=== PATIENT | female | born 1930 | race Caucasian/White ===

== ENCOUNTER 2017-10-09 14:57 | Outpatient (RCR) | payer MEDICARE ==
[~2017-10-09 14:57] MED LIST: ACETAMINOPHEN650 MG PO; ALEVE220 MG PO; ALPRAZOLAM0.5 MG PO; BENADRYL25 M1 PO; DAILY VITAMIN1 EAC3 PO; LISINOPRIL10 MG PO; NORCO 7.5-3251 EACH PO; TRIAMTERENE-HCTZ1 EA PO; Z BENEFIBER PO; Z.0.LISINOPRIL10 MG PO; Z.0.NORVASC10 MG PO; Z.0.TRIAMTERENE-HC1 PO; Z.0.XANAX0.5 MG PO
== END 2017-10-11 ==
LOC: PT 14:57
PROVIDERS: ATTEND Specialist
DX: S32.591A Other specified fracture of right pubis, initial encounter for closed fracture (principal); S32.401A Unspecified fracture of right acetabulum, initial encounter for closed fracture; R26.2 Difficulty in walking, not elsewhere classified; M62.81 Muscle weakness (generalized)
CPT/HCPCS: 97110 ×9; G8978; G8979

== ENCOUNTER 2017-11-16 13:15 | Emergency (ER) | payer MEDICARE ==
[~2017-11-16] VITALS: Ht 170.2 cm; Wt 81.6 kg
[2017-11-16] MEDS ORDERED: DEXAMETHASONE SOD PHOS 10 MG/1 ML VIAL INJ ONE ×2 (13:45→17:00)
[2017-11-16] MEDS ORDERED: HYDROCODONE/APAP 5MG-325MG TAB PO ONE ×2 (13:45→17:00)
[2017-11-16] MEDS ORDERED: CYCLOBENZAPRINE HCL 10 MG TAB PO ONE ×2 (13:45→17:00)
--- NOTE | 2017-11-16 15:16 | Diagnostic Imaging Report ---
PROCEDURE:X-RAY PELVIS, AP VIEW COMPARISON:MRI of the pelvis from 06/19/2017 INDICATIONS:back pain FINDINGS: One view of the pelvis (AP) The known right acetabular fracture (best seen on MRI from 06/19/2017) is poorly visualized. Healing fracture of the right inferior pubic ramus. There are no new fractures, dislocations, lytic or blastic lesions. The bones are well-mineralized. The soft-tissues are unremarkable.Large amount of stool in the rectum. CONCLUSION: Healed fracture of the right inferior pubic ramus. No acute abnormality. Dictated by: Hardik Bryant M.D. on 11/16/2017 at 15:26 Electronically approved by: Hardik Bryant M.D. on 11/16/2017 at 15:26
--- NOTE | 2017-11-16 15:20 | Diagnostic Imaging Report ---
PROCEDURE:X-RAY LUMBAR SPINE, TWO VIEWS COMPARISON:None. INDICATIONS:BACK PAIN FINDINGS: There are 5 lumbar-type vertebral bodies. Sacralization of L5 Mild multilevel degenerative changes of the lumbar spine with multilevel disc space narrowing. Severe disc space narrowing at L5-S1. Moderate facet arthrosis affects the lower lumbar spine. Grade 1 anterolisthesis (likely degenerative) of L4 on L5. No fractures, lytic or blastic lesions. There are moderate degenerative changes of the sacroiliac joints. CONCLUSION: Multilevel degenerative changes of the lumbar spine as described above. No acute post traumatic abnormality. Dictated by: Hardik Bryant M.D. on 11/16/2017 at 15:30 Electronically approved by: Hardik Bryant M.D. on 11/16/2017 at 15:30
[2017-11-16 17:11] LABS: BILIRUBIN,URINE NEGATIVE (NEGATIVE); KETONES,URINE NEGATIVE (NEGATIVE); LEUKOCYTE ESTERASE ,URINE NEGATIVE (NEGATIVE); NITRITE,URINE NEGATIVE (NEGATIVE); PROTEIN,URINE DIPSTICK NEGATIVE (NEGATIVE); URINE UROBILINOGEN 0.2 mg/dL (0.2 - 1)
[2017-11-16 17:14] LABS: CLARITY,URINE SL CLOUDY (CLEAR); COLOR,URINE YELLOW (YELLOW)
[2017-11-16 17:24] LABS: EPITHELIAL CELLS,URINE FEW /LPF; RBC,URINE 0-5 /HPF (0-5); WBC,URINE (MAN) 0-5 /HPF (0-5)
== END 2017-11-16 17:42 | disposition home or self-care (01) ==
LOC: ER 13:15
DX: M54.5 Low back pain (principal)
CPT/HCPCS: 72100; 72170; 81001; 87086; 99283; J1100

== ENCOUNTER 2017-11-23 12:10 | Inpatient (IN) | payer MEDICARE ==
[~2017-11-23] VITALS: Ht 170.2 cm; Wt 94.9 kg
[2017-11-23] MEDS ORDERED: VITAMIN D1000 UNI1 PO (12:43)
[2017-11-23 14:28] LABS: BILIRUBIN,URINE NEGATIVE (NEGATIVE); KETONES,URINE NEGATIVE (NEGATIVE); LEUKOCYTE ESTERASE ,URINE 2+ (NEGATIVE); PROTEIN,URINE DIPSTICK NEGATIVE (NEGATIVE); URINE UROBILINOGEN 0.2 mg/dL (0.2 - 1)
[2017-11-23 14:32] LABS: NITRITE,URINE POSITIVE (NEGATIVE)
[2017-11-23 14:33] LABS: CLARITY,URINE SL CLOUDY (CLEAR); COLOR,URINE YELLOW (YELLOW)
[2017-11-23 14:54] LABS: AMORPHOUS SEDIMENT,URINE MODERATE (FEW); BACTERIA,URINE FEW /HPF; EPITHELIAL CELLS,URINE RARE /LPF; RBC,URINE 21-50 /HPF (0-5)
[2017-11-23] MEDS ORDERED: SODIUM CHLORIDE 0.9% 1000ML 1,000 ML IV STA (15:40)
[2017-11-23] MEDS ORDERED: KETOROLAC TROMETHAMINE 30 MG/ML VIAL IV STA (15:40)
[2017-11-23] MEDS ORDERED: CEFTRIAXONE SOD 1 GM VIAL IV ONE (15:45)
[2017-11-23 15:57] LABS: BASOPHILS # (AUTO) 0.1 (0.0-0.1); BASOPHILS % 0.4 % (0.0-1.0); EOSINOPHILS # (AUTO) 0.1 (0.0-0.4); EOSINOPHILS % 1.1 % (0.0-6.0); HEMATOCRIT 40.8 % (34.2-44.1); LYMPHOCYTES # (AUTO) 1.4 (1.0-3.2); LYMPHOCYTES % 12.5 % (18.0-39.1); MEAN CORPUSCULAR HEMOGLOBIN 30.8 pg (28-32); MEAN CORPUSCULAR HGB CONC 34.3 g/dL (31-35); MEAN CORPUSCULAR VOLUME 89.7 fL (81-99); MONOCYTES # (AUTO) 0.8 (0.2-0.8); MONOCYTES % 7.2 % (4.4-11.3); NEUTROPHILS # (AUTO) 8.7 (2.1-6.9); NEUTROPHILS % 77.1 % (38.7-80.0); PLATELET COUNT 352 x10e3/uL (140-360); RED BLOOD COUNT 4.55 x10e6/uL (3.6-5.1); RED CELL DISTRIBUTION WIDTH 13.2 % (11.7-14.4)
[2017-11-23 16:11] LABS: ALANINE AMINOTRANSFERASE 13 IU/L (0-55); ALBUMIN 3.7 g/dL (3.5-5.0); ALKALINE PHOSPHATASE 208 IU/L (40-150); ANION GAP 16.2 mmol/L (8-16); BLOOD UREA NITROGEN 16 mg/dL (7-26); BUN/CREATININE RATIO 18 (6-25); CALCIUM 9.6 mg/dL (8.4-10.2); CARBON DIOXIDE 23 mmol/L (22-29); CHLORIDE 93 mmol/L (98-107); CREATININE, SERUM 0.87 mg/dL (0.57-1.11); EST GLOMERULAR FILTRATION RATE > 60 ML/MIN (60-); GLUCOSE 93 mg/dL (74-118); POTASSIUM 4.2 mmol/L (3.5-5.1); SODIUM 128 mmol/L (136-145)
[2017-11-23] MEDS: SODIUM CHLORIDE 0.9% 1000ML 1,000 ML IV SCH (20:33)
[2017-11-24] VITALS (12 sets, daily range): BP systolic 129–164; BP diastolic 49–80
[2017-11-24] MEDS: SODIUM CHLORIDE 0.9% 1000ML 1,000 ML IV SCH ×3 (05:30→16:49)
[2017-11-24] MEDS ORDERED: LISINOPRIL 10 MG TAB PO PRN (06:00)
[2017-11-24] MEDS: ALPRAZOLAM 0.5 MG TAB PO SCH ×4 (06:10→23:33)
[2017-11-24 06:26] LABS: BASOPHILS # (AUTO) 0.1 (0.0-0.1); BASOPHILS % 0.5 % (0.0-1.0); EOSINOPHILS # (AUTO) 0.3 (0.0-0.4); EOSINOPHILS % 2.8 % (0.0-6.0); HEMATOCRIT 35.9 % (34.2-44.1); LYMPHOCYTES # (AUTO) 1.6 (1.0-3.2); LYMPHOCYTES % 13.9 % (18.0-39.1); MEAN CORPUSCULAR HEMOGLOBIN 30.2 pg (28-32); MEAN CORPUSCULAR HGB CONC 33.4 g/dL (31-35); MEAN CORPUSCULAR VOLUME 90.4 fL (81-99); MONOCYTES % 8.7 % (4.4-11.3); NEUTROPHILS # (AUTO) 8.4 (2.1-6.9); NEUTROPHILS % 72.8 % (38.7-80.0); PLATELET COUNT 329 x10e3/uL (140-360); RED BLOOD COUNT 3.97 x10e6/uL (3.6-5.1); RED CELL DISTRIBUTION WIDTH 13.2 % (11.7-14.4)
[2017-11-24 06:52] LABS: ANION GAP 14.2 mmol/L (8-16); CREATININE, SERUM 0.89 mg/dL (0.57-1.11); POTASSIUM 5.2 mmol/L (3.5-5.1)
[2017-11-24] MEDS: CHOLECALCIFEROL 1,000 UNIT TAB PO SCH (08:20)
[2017-11-24] MEDS: MORPHINE SULFATE 2 MG/ML SYR IV PRN ×2 (08:29→14:46)
[2017-11-24] MEDS: ONDANSETRON HCL INJ 2 MG/ML VIAL IV PRN ×2 (08:29→14:46)
--- NOTE | 2017-11-24 12:59 | Consultation ---
DATE OF CONSULTATION: November 24, 2017 REHAB CONSULTATION REFERRING PHYSICIAN: Dr. Boby Cisse. I would like to thank Dr. Cisse for asking me to see Mrs. Brooks in consultation. REASON FOR CONSULTATION 1. Low back pain. 2. Hypertension. HISTORY: First of all, I thank Dr. Cisse for asking me to see Mrs. Brooks in consultation. Patient is a pleasant but unfortunate 86-year-old female who started developing low back pain after sitting down and watching TV. This started a short time ago, and she did not have any fall or twist or any kind of episode that would have initiated this kind of pain. She says it started after she sat down for a long time watching TV. Her back was sore, and it started off in her right gluteal area in the middle of her buttocks. It then eventually radiated to her left buttocks, and it started going down both legs posteriorly down to just around the calf levels. Patient had previous pelvic acetabular fracture, but that was healed. She went and saw Orthopedics, and she was given an exercise program. Unfortunately, it started to make the pain worse. She had to come in for relief and came into this facility. I am being asked to evaluate for rehab needs. PAST MEDICAL HISTORY: Hypertension and osteoarthritis. She has had no previous back pains like this. SURGERIES: Include a cholecystectomy, and she has had a hysterectomy, bilateral TKAs as well as bladder suspension. ALLERGIES: SHRIMP. HABITS: Nonsmoker and nondrinker. FAMILY HISTORY: Father had hypertension. Mother of bladder cancer. SOCIAL HISTORY: Lives with her spouse in a one-story home. REVIEW OF SYSTEMS: With regard to her back pain, she says it started insidiously and progressed, pretty much constant. Lying flat makes it better. Getting up and moving makes it worse. She denies any bowel or bladder incontinence. In fact, she has constipation. Her legs do not give out, but she does not really walk that much. There is no tingling to her legs, but she says her feet feel "hard." LABS: White cell count of 11.5, hemoglobin of 12, hematocrit of 35.9, platelets of 329. Sodium is 134, potassium 5.2, BUN of 17, creatinine 0.89. She has had recent lumbar spine x-ray which showed multilevel degenerative changes in the lumbar spine, no post acute traumatic abnormality, severe disk space narrowing at L5-S1. She had an x-ray of the pelvis showing a healed fracture of the right inferior pubic ramus. There was also an acetabular fracture which was poorly visualized. PHYSICAL EXAMINATION GENERAL: The patient is awake, alert, somewhat hard of hearing. EYES: Gaze conjugate. ORAL: Tongue is midline. NECK: Supple. HEART: Regular. LUNGS: Clear to upper carpenter. ABDOMEN: Nondistended. No nausea. She is a little bit constipated. EXTREMITIES: Sensory-ortega, denies any numbness or tingling in hands, face, or feet or legs. Straight leg raise was negative for sciatica. No sharp or shooting pain down the leg. Clonus was negative bilaterally. No increased tone with passive range of motion of arms and legs. MANUAL MUSCLE TESTING: Pretty much 4+/5 to 5/5 strength in the upper extremities bilaterally. In the lower extremities, 4+/5 to 5/5 strength on the right and 4/5 strength on the left. She says this has been a little bit weak ever since her most recent knee replacement, which was about 2 years ago. Again, no sensory changes. Palpation along the back caused no radiating pain, did not cause any tenderness while she was in a side-lying position. IMPRESSION 1. Low back pain with radiation down the legs, possibly disk disease. It gets worse when standing or sitting up and much better when lying down. Would recommend MRI. 2. Hypertension. 3. History of arthritis. 4. Known degenerative spine disease. PLAN: MRI is to be ordered, will read. Will see how she does and try to get therapies initiated, then will have to try to get through insurance to see if they will allow her to come to rehab depending on how she does. Will follow along with you. Thank you once again, Dr. Cisse, for allowing me to participate in the care of this very interesting patient. Discussed with patient and son. Job#: [id number] TOD
[2017-11-24] MEDS: CEFTRIAXONE SOD 1 GM VIAL IV SCH (14:45)
--- NOTE | 2017-11-24 19:10 | Diagnostic Imaging Report ---
Examination: MRI SPINE LUMBAR WITHOUT CONTRAST History: Back pain. Comparison studies: X-ray of the lumbar spine performed November 16, 2017 Technique: Sagittal, coronal and axial T2 , sagittal T1 and STIR; axial spin density oblique. Findings: Number of lumbar vertebral bodies: Five. Alignment: Normal lordosis. No scoliosis. Soft tissues: Mild atrophy of the bilateral kidneys. Bilateral T2 hyperintense lesions with the largest measuring 2.1 cm in the upper pole of the left kidney and is partially visualized. These findings likely represent cysts. Posterior paraspinal soft tissues and muscles: Mild fatty atrophy. Lower thoracic cord: Normal in signal and morphology. The tip of the conus is at T12-L1. Cauda equina: No masses. No arachnoiditis. Vertebrae: No fractures, infection or neoplasm of the lumbar vertebrae. Type II Modic change of the anterosuperior corner of L1 and superior L3 vertebral bodies. The partially visualized sacrum demonstrates edema within the S2 vertebral body and bilateral sacral ala. Degenerative changes: L1-L2: No abnormalities. L2-L3: Mild diffuse disc bulge and bilateral facet arthropathy result in mild bilateral neural foraminal narrowing. No canal stenosis. L3-L4: Mild diffuse disc bulge, mild ligamentum flavum thickening and bilateral facet arthropathy result in mild bilateral neural foraminal narrowing and mild canal stenosis. L4-L5: Grade I anterolisthesis without pars defect. Uncovering of a diffuse disc bulge, severe bilateral facet arthropathy and mild ligamentum flavum thickening result in mild right and moderate left neural foraminal narrowing and severe canal stenosis. L5-S1: Diffuse disc bulge and severe right and moderate left facet arthropathy results in mild right neural foraminal narrowing. No left foraminal or canal stenosis. IMPRESSION: 1. Possible fractures of the S2 vertebral body and bilateral sacral ala. Further evaluation with dedicated MRI of the sacrum is recommended. 2. Degenerative changes of L2-L3 through L5-S1 with severe canal stenosis at L4-L5 and mild canal stenosis at L3-L4. 3. Moderate left foraminal narrowing at L4-L5. 4. Degenerative grade I anterolisthesis of L4 on L5. Signed by: Dr. Arlette Peoples M.D. on 11/24/2017 7:07 PM
[2017-11-25] VITALS (7 sets, daily range): BP systolic 105–146; BP diastolic 53–67
[2017-11-25] MEDS: BISACODYL 5 MG TAB EC PO SCH (07:09)
[2017-11-25] MEDS: ALPRAZOLAM 0.5 MG TAB PO SCH (07:09)
[2017-11-25] MEDS: SODIUM CHLORIDE 0.9% 1000ML 1,000 ML IV SCH ×3 (07:10→16:48)
[2017-11-25] MEDS: CHOLECALCIFEROL 1,000 UNIT TAB PO SCH (08:50)
[2017-11-25] MEDS ORDERED: ALPRAZOLAM 0.5 MG TAB PO PRN (12:00)
[2017-11-25] MEDS: CEFTRIAXONE SOD 1 GM VIAL IV SCH (15:10)
--- NOTE | 2017-11-25 19:49 | Consultation ---
DATE OF CONSULTATION: November 25, 2017 REASON FOR CONSULTATION: Bilateral leg pain. The patient is an 86-year-old healthy woman who presents with one month of severe low back pain radiating down both legs to the feet associated with numbness in the feet. She has become progressively worse over the past month in spite of conservative treatment, and visits to the emergency room and her orthopedist. She has been taking tramadol and Flexeril without any benefit. PHYSICAL EXAMINATION: The patient is in severe pain in bed. Straight leg raising is positive at 30 degrees bilaterally. Motor strength is diminished in the EHL bilaterally at 4/5. Sensory testing is diminished over the dorsum of the feet bilaterally and symmetrically. Deep tendon reflexes are 1+ in the patellar tendons and absent in the Achilles tendons. Plantar responses are flexor. She has a great deal of difficulty sitting and standing because of the exacerbation of the low back and bilateral leg pain. She is wearing a diaper in bed. MRI of the lumbar spine reveals very severe lumbar spinal stenosis at L4-5 due to a combination of severe ligamentous hypertrophy, broad-based disk herniation, and grade 1 degenerative spondylolisthesis. I recommend L4-5 bilateral decompressive laminectomy and diskectomy. In view of her advanced age, I do not recommend a fusion. The risks and benefits of the operation were explained to the patient in great detail. There was some infection, bleeding, CSF leakage, and the possibility of recurrent disk herniation and worsening spondylolisthesis were explained. She fully understands all of these issues and gives the informed consent to proceed with surgery. We will proceed with surgery tomorrow. Depending on her postoperative progress, she may require inpatient rehabilitation. Job#: [id number]
[2017-11-25 19:50] LABS: INR 1.06
[2017-11-25 19:51] LABS: PARTIAL THROMBOPLASTIN TIME 30.9 seconds (23.8-35.5)
[2017-11-25] MEDS: MORPHINE SULFATE 2 MG/ML SYR IV PRN (23:54)
[2017-11-26] VITALS (8 sets, daily range): BP systolic 132–161; BP diastolic 63–82
[2017-11-26] MEDS: SODIUM CHLORIDE 0.9% 1000ML 1,000 ML IV SCH ×2 (00:34→11:10)
[2017-11-26] MEDS: BISACODYL 5 MG TAB EC PO SCH (04:29)
[2017-11-26] MEDS ORDERED: LIDOCAINE HCL (LTA) 4 ML SOLN ONE (07:10)
[2017-11-26] MEDS ORDERED: GELATIN SPONGE SZ 100 ONE (07:33)
[2017-11-26] MEDS ORDERED: BACITRACIN 50,000 UNIT VIAL ONE (07:33)
[2017-11-26] MEDS ORDERED: LIDOCAINE 1% W/EPINEPHRINE 20 ML VIAL ONE (07:33)
[2017-11-26] MEDS ORDERED: THROMBIN FOR SOLN 5,000 UNIT VIAL ONE (07:33)
[2017-11-26 08:54] LABS: ANION GAP 12.5 mmol/L (8-16); BLOOD UREA NITROGEN 12 mg/dL (7-26); BUN/CREATININE RATIO 15 (6-25); CALCIUM 9.3 mg/dL (8.4-10.2); CARBON DIOXIDE 25 mmol/L (22-29); CHLORIDE 103 mmol/L (98-107); EST GLOMERULAR FILTRATION RATE > 60 ML/MIN (60-); GLUCOSE 96 mg/dL (74-118); POTASSIUM 4.5 mmol/L (3.5-5.1); SODIUM 136 mmol/L (136-145)
[2017-11-26] MEDS ORDERED: ZOLPIDEM TARTRATE 5 MG TAB PO PRN (11:00)
[2017-11-26] MEDS ORDERED: MORPHINE SULFATE 5 MG/ML VIAL IM PRN (11:00)
[2017-11-26] MEDS ORDERED: MAGNESIUM/ALUMINUM/SIMETHICONE 30 ML UDC PO PRN (11:00)
[2017-11-26] MEDS ORDERED: OXYCODONE/ACETAMINOPHEN 5-325 1 EACH TABLET PO PRN (11:00)
[2017-11-26] MEDS ORDERED: PROMETHAZINE HCL (IM) 25 MG/ML VIAL IM PRN (11:00)
[2017-11-26] MEDS ORDERED: CEPACOL SORE THROAT LOZENGES PO PRN (11:00)
[2017-11-26] MEDS ORDERED: ACETAMINOPHEN 325 MG TAB PO PRN (11:00)
[2017-11-26] MEDS ORDERED: HYDROMORPHONE 2MG/ML INJ IV PRN (11:00)
--- NOTE | 2017-11-26 11:24 | Progress Note ---
DATE: November 26, 2017 Ms. Brooks is undergoing lumbar laminectomy with Dr. Fishman. Per nursing, no reported issues before she went for surgery. Sodium is 136, potassium 4.5, BUN 12, creatinine 0.8. VITAL SIGNS: Temperature 97.0, heart rate 69, blood pressure 132/63, respirations 18. The patient will be evaluated after surgery to see what her functional status is and see which way to go with regards to rehab. We will follow. Job#: [id number]
[2017-11-26] MEDS ORDERED: CEFAZOLIN SOD 1 GM/NS 50ML 50 ML IV SCH (14:00)
--- NOTE | 2017-11-26 14:05 | Operative Report ---
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 PROCEDURES 1. L4 bilateral decompressive laminectomy and L4-5 medial facetectomies, 66287. 2. L5 bilateral partial decompressive laminectomy, 20914. 3. Left L4-5 microsurgical diskectomy. ANESTHESIA: General. INDICATIONS: The patient is an 86-year-old woman who presents with severe L4-5 spinal stenosis due to facet and ligamentous hypertrophy, mild grade 1 degenerative spondylolisthesis, and a superimposed broad-based disk herniation. She has severe bilateral leg pain and is unable to ambulate. She was taken to the operating room for bilateral laminectomy and unilateral diskectomy. PROCEDURE IN DETAIL: After induction of general anesthesia, the patient was placed on the operating table in prone position over a Jeronimo frame. The lumbar region was prepped and draped in sterile fashion. A preoperative x-ray was obtained. A small midline incision was created. The lumbar fascia was opened and the spinous processes and laminae of L4 and L5 were exposed. The medial aspects of the facet joints were exposed. Another x-ray confirmed correct localization. Portions of the spinous processes were resected. A high-speed drill equipped with a marce david was used to drill the inferior aspect of the lamina of L4 and the superior aspect of lamina of L5 and the medial rim of the L4-5 facet joints bilaterally. The ligamentum flavum was resected, and the dural sac and the L5 nerve roots were fully exposed and decompressed. The dural sac was then retracted slightly on the left side and the disk space was exposed. The posterior longitudinal ligament and posterior annulus of the disk were incised with a #11 blade. The subligamentous disk herniation was retrieved and removed. The loose contents of the L4-5 disk were evacuated with a micropituitary instrument. Meticulous hemostasis was secured. The wound was irrigated with Bacitracin solution and closed in multiple layers with 0 and 2-0 Vicryl sutures. The skin was closed with 3-0 Monocryl sutures in a subcuticular fashion. Steri-Strips and a dressing were applied. The patient was awakened, extubated, and taken to postanesthesia care unit in stable condition. No intraoperative complications were encountered. Estimated blood loss was minimal. Job#: [id number] JOSEFINA
[2017-11-26] MEDS: LACTATED RINGER'S 1,000 ML IV SCH ×3 (14:20→19:53)
[2017-11-26] MEDS: CHOLECALCIFEROL 1,000 UNIT TAB PO SCH (14:20)
[2017-11-26] MEDS: CEFAZOLIN SOD 1 GM VIAL IV SCH ×2 (14:20→21:00)
[2017-11-26] MEDS: CEFTRIAXONE SOD 1 GM VIAL IV SCH (15:54)
[2017-11-26] MEDS ORDERED: LIDOCAINE HCL 2% LOCAL INJ 5 ML SDV VIAL INJ ONE (18:09)
[2017-11-26] MEDS ORDERED: SEVOFLURANE INHAL SOLN 250 ML PEN BTL ONE (18:09)
[2017-11-26] MEDS ORDERED: GLYCOPYRROLATE INJ 1MG/ 5 ML SYR ONE (18:09)
[2017-11-26] MEDS ORDERED: NEOSTIGMINE 5 MG/5ML SYR ONE (18:09)
[2017-11-26] MEDS ORDERED: CEFAZOLIN SOD 1 GM VIAL ONE (18:09)
[2017-11-26] MEDS ORDERED: DEXAMETHASONE SOD PHOS INJ 4 MG/ML VIAL ONE (18:09)
[2017-11-26] MEDS ORDERED: EYE LUBRICANT OPTH OINT 3.5GM TUBE OP ONE (18:09)
[2017-11-26] MEDS ORDERED: ONDANSETRON HCL INJ 2 MG/ML VIAL ONE (18:09)
[2017-11-26] MEDS ORDERED: LIDOCAINE HCL 2% JELLY 5 ML TUBE ONE (18:09)
[2017-11-26] MEDS ORDERED: ROCURONIUM BROMIDE 10 MG/ML 5ML VIAL ONE (18:09)
[2017-11-26] MEDS ORDERED: PROPOFOL IV EMULSION 10 MG/ML 20 ML VIAL ONE (18:09)
[2017-11-27] VITALS: BP 152/83
[2017-11-27 05:10] VITALS: BP 161/77
[2017-11-27] MEDS: BISACODYL 5 MG TAB EC PO SCH (05:24)
[2017-11-27] MEDS ORDERED: PANTOPRAZOLE 40 MG 10ML VIAL ONE (05:25)
[2017-11-27] MEDS: CEFAZOLIN SOD 1 GM VIAL IV SCH (05:25)
[2017-11-27] MEDS ORDERED: PANTOPRAZOLE 40 MG 10ML VIAL IV STA (05:26)
[2017-11-27] MEDS: LACTATED RINGER'S 1,000 ML IV SCH ×2 (05:45→13:07)
[2017-11-27] MEDS: ONDANSETRON HCL INJ 2 MG/ML VIAL IV PRN ×3 (05:45→20:40)
[2017-11-27] MEDS ORDERED: PROMETHAZINE 25MG/ NS 50ML (IV) IV PRN (07:45)
[2017-11-27 08:51] VITALS: BP 161/83
[2017-11-27] MEDS: CHOLECALCIFEROL 1,000 UNIT TAB PO SCH (09:00)
[2017-11-27] MEDS ORDERED: DIPHENHYDRAMINE HCL 25 MG CAP PO ONE (09:45)
[2017-11-27] MEDS ORDERED: PROMETHAZINE HCL (IM) 25 MG/ML VIAL IM PRN (11:00)
[2017-11-27 13:27] VITALS: BP 171/78
[2017-11-27] MEDS: CEFTRIAXONE SOD 1 GM VIAL IV SCH (15:05)
[2017-11-27 16:15] VITALS: BP 164/75
[2017-11-27] MEDS ORDERED: FENTANYL CITRATE/PF 100MCG/2 ML INJ ONE (18:32)
[2017-11-27 20:20] VITALS: BP 159/79
[2017-11-28] VITALS (7 sets, daily range): BP systolic 139–164; BP diastolic 71–87
[2017-11-28] MEDS: BISACODYL 5 MG TAB EC PO SCH (05:45)
[2017-11-28] MEDS: LACTATED RINGER'S 1,000 ML IV SCH ×4 (05:48→22:19)
[2017-11-28] MEDS: CHOLECALCIFEROL 1,000 UNIT TAB PO SCH (07:51)
[2017-11-28] MEDS: CARISOPRODOL 350 MG TAB PO PRN ×2 (12:00→20:24)
[2017-11-28] MEDS: CEFTRIAXONE SOD 1 GM VIAL IV SCH (14:44)
[2017-11-29 00:41] VITALS: BP 148/79
[2017-11-29 04:49] VITALS: BP 164/84
[2017-11-29] MEDS: LACTATED RINGER'S 1,000 ML IV SCH ×2 (06:09→13:58)
[2017-11-29] MEDS: BISACODYL 5 MG TAB EC PO SCH (06:10)
[2017-11-29] MEDS: CHOLECALCIFEROL 1,000 UNIT TAB PO SCH (08:14)
[2017-11-29] MEDS: CARISOPRODOL 350 MG TAB PO PRN ×2 (08:14→20:34)
[2017-11-29 08:53] VITALS: BP 160/72
[2017-11-29 11:55] VITALS: BP 160/70
[2017-11-29 16:23] VITALS: BP 160/70
[2017-11-29] MEDS: CEFTRIAXONE SOD 1 GM VIAL IV SCH (16:47)
[2017-11-29 20:07] VITALS: BP 156/74
[2017-11-30 01:06] VITALS: BP 147/72
[2017-11-30] MEDS: CARISOPRODOL 350 MG TAB PO PRN ×2 (03:15→09:14)
[2017-11-30 04:53] VITALS: BP 149/76
[2017-11-30] MEDS: BISACODYL 5 MG TAB EC PO SCH (05:31)
[2017-11-30 08:23] VITALS: BP 146/80
[2017-11-30] MEDS: CHOLECALCIFEROL 1,000 UNIT TAB PO SCH (09:14)
[2017-11-30 12:00] VITALS: BP 154/78
== END 2017-11-30 13:14 | disposition home or self-care (01) | DRG 519 ==
LOC: ER 12:10 → ERHOLD 20:07 → IMCU 22:28 → OBSVTOIN 11-26 11:03 → MED/SURG3 11-26 22:04
PROVIDERS: ADMIT Internal Medicine; ATTEND Internal Medicine
PROC: 0SB20ZZ Excision of Lumbar Vertebral Disc, Open Approach (ICD-10-PCS; 2017-11-26)
PROC: 00NY0ZZ Release Lumbar Spinal Cord, Open Approach (ICD-10-PCS; 2017-11-26)
PROC: 0QB00ZZ Excision of Lumbar Vertebra, Open Approach (ICD-10-PCS; 2017-11-26)
PROC: 0QB00ZZ Excision of Lumbar Vertebra, Open Approach (ICD-10-PCS; principal; 2017-11-26 13:00)
DX: M51.16 Intervertebral disc disorders with radiculopathy, lumbar region (principal); N39.0 Urinary tract infection, site not specified; M48.061 Spinal stenosis, lumbar region without neurogenic claudication; G89.29 Other chronic pain; I10 Essential (primary) hypertension
CPT/HCPCS: 36415; 72020; 72148; 80048; 80053; 81001; 85025; 85610; 85730; 87086; 87186; 88304; 88311; 96361; 96376; 99284; G0378; J0690; J0696; J1100; J1885; J2001; J2270; J2405; J2550; J7030; J7120

== ENCOUNTER 2017-12-06 12:02 | Emergency (ER) | payer MEDICARE ==
[~2017-12-06] VITALS: Ht 170.2 cm; Wt 99.8 kg
[~2017-12-06 12:02] MED LIST changes: +VITAMIN D1000 UNI1 PO
[2017-12-06] MEDS ORDERED: HYDROCODONE/ACETAMIN (12:22)
[2017-12-06] MEDS ORDERED: ACETAMINOPHEN500 MG PO (12:22)
[2017-12-06 14:30] LABS: BASOPHILS # (AUTO) 0.1 (0.0-0.1); BASOPHILS % 0.3 % (0.0-1.0); EOSINOPHILS % 0.1 % (0.0-6.0); HEMATOCRIT 35.7 % (34.2-44.1); HEMOGLOBIN 12.1 g/dL (12.0-16.0); LYMPHOCYTES # (AUTO) 0.8 (1.0-3.2); LYMPHOCYTES % 3.5 % (18.0-39.1); MEAN CORPUSCULAR HGB CONC 33.9 g/dL (31-35); MEAN CORPUSCULAR VOLUME 88.6 fL (81-99); MONOCYTES # (AUTO) 1.8 (0.2-0.8); NEUTROPHILS # (AUTO) 19.8 (2.1-6.9); NEUTROPHILS % 86.4 % (38.7-80.0); PLATELET COUNT 412 x10e3/uL (140-360); RED BLOOD COUNT 4.03 x10e6/uL (3.6-5.1); RED CELL DISTRIBUTION WIDTH 13.2 % (11.7-14.4)
[2017-12-06 14:31] LABS: BILIRUBIN,URINE NEGATIVE (NEGATIVE); CLARITY,URINE CLEAR (CLEAR); COLOR,URINE YELLOW (YELLOW); KETONES,URINE 1+ (NEGATIVE); LEUKOCYTE ESTERASE ,URINE NEGATIVE (NEGATIVE); NITRITE,URINE NEGATIVE (NEGATIVE); URINE UROBILINOGEN 0.2 mg/dL (0.2 - 1)
[2017-12-06 14:38] LABS: PROTEIN,URINE DIPSTICK 1+ (NEGATIVE)
[2017-12-06 14:42] LABS: ALANINE AMINOTRANSFERASE 7 IU/L (0-55); ALBUMIN 2.9 g/dL (3.5-5.0); ALBUMIN/GLOBULIN RATIO 0.7 (0.8-2.0); ALKALINE PHOSPHATASE 295 IU/L (40-150); ANION GAP 16.3 mmol/L (8-16); BLOOD UREA NITROGEN 15 mg/dL (7-26); BUN/CREATININE RATIO 17 (6-25); CALCIUM 10.3 mg/dL (8.4-10.2); CARBON DIOXIDE 24 mmol/L (22-29); CHLORIDE 92 mmol/L (98-107); CREATININE, SERUM 0.88 mg/dL (0.57-1.11); EST GLOMERULAR FILTRATION RATE > 60 ML/MIN (60-); GLUCOSE 115 mg/dL (74-118); POTASSIUM 4.3 mmol/L (3.5-5.1); SODIUM 128 mmol/L (136-145)
[2017-12-06 14:46] LABS: HYALINE CASTS 0-1 (0-1)
[2017-12-06] MEDS ORDERED: CEFTRIAXONE SOD 1 GM VIAL IV ONE (15:00)
[2017-12-06 15:50] VITALS: BP 153/76
[2017-12-06 17:44] LABS: MONOCYTES % (MANUAL) 8 % (3.4-9.0); NEUTROPHILS % (MANUAL) 92 % (40-74)
[2017-12-06 17:46] LABS: PLATELET ESTIMATE SLIGHTLY INCREASED; PLATELET MORPHOLOGY COMMENT FEW GIANT; RBC MORPHOLOGY COMMENT NORMAL
== END 2017-12-06 15:58 | disposition home or self-care (01) ==
LOC: ER 12:02
DX: R31.9 Hematuria, unspecified (principal); N39.0 Urinary tract infection, site not specified; I10 Essential (primary) hypertension
CPT/HCPCS: 36415; 51700; 80053; 81001; 85025; 87086; 99284; J0696

== ENCOUNTER 2018-01-07 14:00 | Outpatient (RCR) | payer MEDICARE ==
[~2018-01-07 14:00] MED LIST changes: +ACETAMINOPHEN500 MG PO; +HYDROCODONE/ACETAMIN
== END 2018-01-09 ==
LOC: PT 14:00
PROVIDERS: ATTEND Neurological Surgery
DX: M48.062 Spinal stenosis, lumbar region with neurogenic claudication (principal); M79.652 Pain in left thigh; M62.81 Muscle weakness (generalized); M53.86 Other specified dorsopathies, lumbar region; R26.2 Difficulty in walking, not elsewhere classified
CPT/HCPCS: 97010; 97110 ×5; 97162; G8978; G8979

== ENCOUNTER 2018-02-04 14:00 | Outpatient (RCR) | payer MEDICARE | END 2018-02-08 | LOC: PT 14:00 | PROVIDERS: ATTEND Neurological Surgery | DX: M48.062 Spinal stenosis, lumbar region with neurogenic claudication (principal); M53.86 Other specified dorsopathies, lumbar region; M79.652 Pain in left thigh; R26.2 Difficulty in walking, not elsewhere classified; M62.81 Muscle weakness (generalized) | CPT/HCPCS: 97010 ×2; 97110 ×7; 97139; G8978; G8979 ==

== ENCOUNTER 2018-02-16 13:54 | Outpatient (RCR) | payer MEDICARE | END 2018-03-11 | LOC: PT 13:54 | PROVIDERS: ATTEND Neurological Surgery | DX: M48.062 Spinal stenosis, lumbar region with neurogenic claudication (principal); M79.652 Pain in left thigh; M53.86 Other specified dorsopathies, lumbar region; M62.81 Muscle weakness (generalized); R26.2 Difficulty in walking, not elsewhere classified | CPT/HCPCS: 97139 ==

== ENCOUNTER → 2018-08-19 | Outpatient (CLI) | payer MEDICARE ==
--- NOTE | 2018-08-19 15:56 | Diagnostic Imaging Report ---
Lumbar Spine Radiographs: 5 views HISTORY: Low back pain. COMPARISON: None available. DISCUSSION: Some of the osseous structures are partially obscured by stool and bowel gas. There are five non-rib bearing lumbar vertebral bodies. Age-indeterminate mild wedge compression deformity of T12 and L3 vertebral body. Grade 1 anterolisthesis of L4 over L5 by 9 mm. Disc Spaces: Mild degenerative changes throughout the lumbar spine, worse at L4-L5 and L5-S1. Facets: The facet joints are unremarkable. Surgical clips overlying the abdomen. IMPRESSION: 1. Age-indeterminate wedge compression deformity of T12 and L3 vertebral body. 2. Multilevel degenerative changes, worse at L4-L5 and L5-S1. 3. Grade 1 anterolisthesis of L4 over L5. Signed by: Dr. Lauren Chris M.D. on 08/19/2018 3:53 PM
== END ==
LOC: RAD 14:30
PROVIDERS: ATTEND Internal Medicine
DX: M54.5 Low back pain (principal)
CPT/HCPCS: 72110